=== PATIENT | male | born 1985 | race Caucasian/White ===

== ENCOUNTER 2021-05-28 13:23 | Emergency (ER) | payer MEDICAID ==
--- NOTE | 2021-05-28 14:25 | EDM.PDOC ---
ED HPI GENERAL MEDICAL PROBLEM - General Chief Complaint: ENT Problem Stated Complaint: SORE THROAT Time Seen by Provider: 05/28/21 13:50 Source of Information: Reports: Patient History Limitations: Reports: No Limitations - History of Present Illness INITIAL COMMENTS - FREE TEXT/NARRATIVE: 35-year-old male presents the emergency department today with complaints of painful oral ulcers. Patient states that he has had oral ulcers that present approximately every 2 weeks for the past 2 months. The patient denies any recent fever, chills, nausea, vomiting or diarrhea. He denies any headache, cough or shortness of breath. He does complain of intermittent sore throat. He states he is otherwise healthy. He does not have any past medical history other than some anxiety and depression. He states he was recently seen and tested for strep throat and this was negative. He states he has been given viscous lidocaine for the treatment of the oral ulcers as well as given a round of antibiotics however he cannot remember what kind of antibiotics he was placed on. He states none of this has helped. He states that his tongue is also quite sore and he has not been able to eat or drink due to the pain associated with that. Lip Pain Score (Numeric/FACES): 8 Throat Pain Score (Numeric/FACES): 7 - Related Data Allergies Allergy/AdvReac Type Severity Reaction Status Date / Time No Known Allergies Allergy Verified 05/28/21 13:37 Home Meds: Home Meds Omeprazole 20 mg PO DAILY 05/28/21 [History] Venlafaxine [Effexor] 0 mg PO DAILY 05/28/21 [History] buPROPion [Wellbutrin] 0 mg PO DAILY 05/28/21 [History] valACYclovir HCl [valACYclovir] 1,000 mg PO TID #21 tablet 05/28/21 [Rx] Past Medical History Psychiatric History: Reports: Anxiety, Depression - Infectious Disease History Infectious Disease History: Reports: None Social & Family History - Tobacco Use Tobacco Use Status *Q: Never Tobacco User - Caffeine Use Caffeine Use: Reports: Soda - Recreational Drug Use Recreational Drug Use: No ED ROS ENT - Review of Systems Review Of Systems: Comprehensive ROS is negative, except as noted in HPI. ED EXAM, ENT - Physical Exam Exam: See Below Exam Limited By: No Limitations General Appearance: Alert, WD/WN, No Apparent Distress Ears: Normal External Exam, Hearing Grossly Normal Nose: Normal Inspection, Normal Mucousa Mouth/Throat: Normal Gums, Lip Ulcers (*Noted to left inner lower lip), Throat Pain. No: Normal Inspection (numerous ulcers noted to soft palate, greater on the left than the right side; ulcer noted to left lower inner lip), Normal Lips, Throat Swelling, Tongue Swelling (Patient complains of soreness noted to tongue), Tonsillar Erythema, Tonsillar Exudates, Tonsillar Swelling, Other (numerous ulcers noted to soft palate, greater on the left than the right side; ulcer noted to left lower inner lip) Head: Atraumatic Neck: Normal Inspection, Supple, Non-Tender, Full Range of Motion. No: Lymphadenopathy (L), Lymphadenopathy (R) Respiratory/Chest: No Respiratory Distress, No Accessory Muscle Use Cardiovascular: Normal Peripheral Pulses, Regular Rate, Rhythm GI/Abdominal: No Distention (Male) Exam: Deferred Rectal (Males) Exam: Deferred Back: Normal Inspection Extremities: Normal Inspection Neurological: Alert, Oriented, Normal Cognition Psychiatric: Normal Affect, Normal Mood Skin: Warm, Dry, Intact, Normal Color, No Rash Lymphatic: No Adenopathy Course - Vital Signs Text/Narrative:: As stated above, patient presents with intermittent painful ulcers in his oral mucosa. Upon exam, patient does have what appears to be a canker sore on his lower inner lip. His left palate has numerous ulcers noted, more numerous on the left than on the right. Patient also states that his tongue is very sore however there is no ulcers or erythema noted to the tongue. There is no exudate noted to the tonsils, and tonsils are essentially unremarkable. Again, patient denies any recent fever or chills. He denies any lymphadenopathy. Upon exam, patient does not have any that would suggest [id number]. Discussed the case with Dr. Saunders and he recommends labs for further evaluation as well as a HIV test. Last Recorded V/S: Last Vital Signs Temp 98.0 F 05/28/21 13:42 Pulse 80 05/28/21 13:42 Resp 20 05/28/21 13:42 BP 131/87 05/28/21 13:42 Pulse Ox 98 05/28/21 13:42 - Orders/Labs/Meds Labs: Laboratory Tests 09/04/21 09/04/21 09/04/21 Range/Units 14:47 14:47 14:47 WBC 7.97 (4.23-9.07) K/mm3 RBC 4.43 L (4.63-6.08) M/mm3 Hgb 13.7 (13.7-17.5) gm/dl Hct 40.6 (40.1-51.0) % MCV 91.6 (79.0-92.2) fl MCH 30.9 (25.7-32.2) pg MCHC 33.7 (32.2-35.5) g/dl RDW Std Deviation 40.7 (35.1-43.9) fL Plt Count 293 (163-337) K/mm3 MPV 10.2 (9.4-12.3) fl Neut % (Auto) 51.4 (34.0-67.9) % Lymph % (Auto) 20.3 L (21.8-53.1) % Metcalfe % (Auto) 7.0 (5.3-12.2) % Eos % (Auto) 20.8 H (0.8-7.0) Baso % (Auto) 0.4 (0.1-1.2) % Neut # (Auto) 4.09 (1.78-5.38) K/mm3 Lymph # (Auto) 1.62 (1.32-3.57) K/mm3 Metcalfe # (Auto) 0.56 (0.30-0.82) K/mm3 Eos # (Auto) 1.66 H (0.04-0.54) K/mm3 Baso # (Auto) 0.03 (0.01-0.08) K/mm3 Manual Slide Review Abnormal smear ESR 3 (0-15) mm/hr Sodium 140 (136-145) mEq/L Potassium 4.3 (3.5-5.1) mEq/L Chloride 105 (98-107) mEq/L Carbon Dioxide 28 (21-32) mEq/L Anion Gap 11.3 (5-15) BUN 20 H (7-18) mg/dL Creatinine 1.3 (0.7-1.3) mg/dL Est Cr Clr Drug Dosing TNP Estimated GFR (MDRD) > 60 (>60) mL/min BUN/Creatinine Ratio 15.4 (14-18) Glucose 128 H (70-99) mg/dL Calcium 9.0 (8.5-10.1) mg/dL Magnesium 2.1 (1.8-2.4) mg/dL Total Bilirubin 0.2 (0.2-1.0) mg/dL AST 17 (15-37) U/L ALT 31 (16-63) U/L Alkaline Phosphatase 38 L (46-116) U/L C-Reactive Protein 0.2 (<1.0) mg/dL Total Protein 7.0 (6.4-8.2) g/dl Albumin 4.1 (3.4-5.0) g/dl Globulin 2.9 gm/dL Albumin/Globulin Ratio 1.4 (1-2) HIV-1 Ab Rapid Screen (NEGATIVE) 05/28/21 Range/Units 14:47 WBC (4.23-9.07) K/mm3 RBC (4.63-6.08) M/mm3 Hgb (13.7-17.5) gm/dl Hct (40.1-51.0) % MCV (79.0-92.2) fl MCH (25.7-32.2) pg MCHC (32.2-35.5) g/dl RDW Std Deviation (35.1-43.9) fL Plt Count (163-337) K/mm3 MPV (9.4-12.3) fl Neut % (Auto) (34.0-67.9) % Lymph % (Auto) (21.8-53.1) % Met[place]fe % (Auto) (5.3-12.2) % Eos % (Auto) (0.8-7.0) Baso % (Auto) (0.1-1.2) % Neut # (Auto) (1.78-5.38) K/mm3 Lymph # (Auto) (1.32-3.57) K/mm3 Metcalfe # (Auto) (0.30-0.82) K/mm3 Eos # (Auto) (0.04-0.54) K/mm3 Baso # (Auto) (0.01-0.08) K/mm3 Manual Slide Review ESR (0-15) mm/hr Sodium (136-145) mEq/L Potassium (3.5-5.1) mEq/L Chloride (98-107) mEq/L Carbon Dioxide (21-32) mEq/L Anion Gap (5-15) BUN (7-18) mg/dL Creatinine (0.7-1.3) mg/dL Est Cr Clr Drug Dosing Estimated GFR (MDRD) (>60) mL/min BUN/Creatinine Ratio (14-18) Glucose (70-99) mg/dL Calcium (8.5-10.1) mg/dL Magnesium (1.8-2.4) mg/dL Total Bilirubin (0.2-1.0) mg/dL AST (15-37) U/L ALT (16-63) U/L Alkaline Phosphatase (46-116) U/L C-Reactive Protein (<1.0) mg/dL Total Protein (6.4-8.2) g/dl Albumin (3.4-5.0) g/dl Globulin gm/dL Albumin/Globulin Ratio (1-2) HIV-1 Ab Rapid Screen Negative (NEGATIVE) - Re-Assessments/Exams Free Text/Narrative Re-Assessment/Exam: 05/28/21 16:44 Hematology reveals a WBC of 7.97, hemoglobin 13.7, hematocrit 40.6, platelet count 293,000, ESR 3 Chemistry reveals a sodium of 140, potassium 4.3, anion gap 11.3, BUN 20, creatinine 1.3, glucose 128, magnesium 2.1, C-reactive protein 0.2 HIV 1 AB rapid screen is negative Discussed the lab results with Dr. Saunders and he recommends starting him the patient on valacyclovir 3 times daily for 1 week. Patient will then need to follow-up with his primary care provider. Departure - Departure Time of Disposition: 16:44 Disposition: Home, Self-Care 01 Condition: Good Clinical Impression: Oral aphthous ulcer - Discharge Information Prescriptions: valACYclovir HCl [valACYclovir] 1,000 mg PO TID #21 tablet Referrals: PCP,Not In Area [Primary Care Provider] - Forms: ED Department Discharge Additional Instructions: You were seen in the emergency department today with complaints of painful ulcers to your oral mucosa and tongue. Labs were completed which were essentially unremarkable. I have sent prescription for a medication called valacyclovir. He will take 1000 mg 3 times daily for the next 7 days. This has been shown to help with oral ulcers. Recommend that you follow-up with your primary care provider in about a week's time for further evaluation. Sepsis Event Note (ED) - Evaluation Sepsis Screening Result: No Definite Risk - Focused Exam Vital Signs: Vital Signs Temp Pulse Resp BP Pulse Ox 05/28/21 13:42 98.0 F 80 20 131/87 98
== END 2021-05-28 16:56 | disposition home or self-care (01) ==
LOC: JD.ED 13:23
DX: K12.0 Recurrent oral aphthae (principal)
CPT/HCPCS: 36415; 80053; 83735; 85025; 85652; 86140; 99283; G0433